=== PATIENT | female | born 1960 | race Caucasian/White ===

== ENCOUNTER 2024-03-01 19:11 | Inpatient (IN) | payer BC, SELFPAY ==
[2024-03-01] VITALS (12 sets, daily range): BP systolic 129–163; BP diastolic 52–99; BMI 17.2; BMI 19.5
[2024-03-01 15:15] LABS: Glucose - Point of Care 190 mg/dl (70-99)
[2024-03-01 16:17] LABS: % Basophils 0.2 % (0-2); % Eosinophils 0.1 % (0-6); % Immature Granulocytes 0.7 % (0-0.5); % Lymphocytes 11.8 % (20.5-51.1); % Monocytes 8.5 % (1.7-9.3); % Neutrophils 78.7 % (42.2-75.2); Absolute Immature Granulocytes 0.1 10^3/uL (0-0.05); Absolute Lymphocytes 1.9 10^3/uL (1.2-3.4); Absolute Monocytes 1.4 10^3/uL (0.1-0.6); Absolute Neutrophils 12.7 10^3/uL (1.4-6.5); Hematocrit 40.1 % (37.0-47.0); Mean Corp Hgb Conc. 34.9 g/dL (33.0-37.0); Mean Corpuscular Hgb 29.3 pg (27.0-31.0); Mean Corpuscular Volume 83.9 fL (81.0-99.0); Mean Platelet Volume 9.4 fL (7.4-10.4); Nucleated Red Blood Cells % 0 %; Platelet Count 384 10^3/uL (130-400); Red Blood Cell Count 4.78 10^6/uL (4.20-5.40); Red Cell Dist. Width 13.5 % (11.5-14.5); White Blood Cell Count 16.2 10^3/uL (4.8-10.8)
--- NOTE | 2024-03-01 16:34 | ED.GENMED ---
History of Present Illness
General
Chief Complaint: Blood Sugar Problem
Source: patient and spouse
Time Seen by Provider: 03/01/24 16:23
Travel History
Have you had any contact with someone who has COVID-19?: No
Do you have any symptoms of coronavirus? Fever > 100 degrees, chills, cough, shortness of breath, sore throat, loss of taste or smell, muscle aches, or headache?: No
History of Present Illness
History of Present Illness:
63-year-old female presents to the emergency room stating she believes she is in DKA. Patient was diagnosed with diabetes as a teenager. She currently uses an insulin pump to control her glucose. Patient states that she began feeling unwell about
36 hours ago. In particular she complains of significant fatigue, nausea, vomiting and mild cough. She subjectively feels like she has a fever but has not measured her temperature. Patient states she has had DKA many times in the past. She
denies chest pain but is feeling short of breath.
Past History
Past History
ED Past Medical History: HTN, Hypercholesterolemia and IDDM
ED Past Surgical History:
Social History
Tobacco: Non-smoker
Alcohol: None
Personal:
Living: with family
Phy Exam
Physical Exam
Physical Exam:
General: Awake, Alert, Oriented X3. No acute distress.
Vitals: unremarkable
Head: Atraumatic
Eyes: Pupils equal, EOMI
Throat: Airway intact, no exudates, dry mucosa
Neck: Trachea midline
Lungs: Clear and equal b/l
Heart: Regular rate, no murmurs
Abd: Soft, Nontender, No pulsatile mass
Neuro: Nonfocal
Skin: Warm, dry, no rash
Extremities: pulses equal b/l, no edema
Course
Orders/Labs/Results
Orders:
Orders
03/01/24 Breakfast
Clear Liquid
At Your Request: Full Participation
Does patient need a safe tray?: No
03/01/24 16:09
Complete Blood Count/With Diff Urgent
03/01/24 16:32
0.9% Sodium Chloride 1000 ml [Nss] 1,000 ml IV BOLUS
03/01/24 16:39
B-Hydroxybutyrate Urgent
Comprehensive Metabolic Panel Urgent
Venous Blood Gas Urgent
%Oxygen/Room Air: room air
03/01/24 17:30
IV Insert/Care/Rem.- Treatment PRN
03/01/24 17:37
Ondansetron Injectable [Zofran] 4 mg IV NOW STA
03/01/24 17:38
Electrocardiogram (*1) Urgent
Reason for Study: QTc Monitoring
EKG- Treatment ONCE
03/01/24 17:50
Basic Metabolic Panel Q2H
COVID-19 Antigen Routine
Source: Nasal Swab
03/01/24 17:55
CR Chest - 2 Views Urgent
Comment:
Reason For Exam: Cough, DKA
03/01/24 18:00
KCl 20 Meq/D5.45%Sodchl 1000ML [D5/0.45%NSS with KCL 20 MEQ] 20 meq in 1,000 ml IV 200 mls/hr
03/01/24 18:18
Admit/Transfer Patient As Directed
Co-Sign Provider:
Level of Care: Inpatient admission
Assign to:: ICU
Physician / Group: Yessi
Diagnosis: DKA
Reason for Hospitalization: insulin drip
Expected length of stay greater than two midnights?: Yes
ELOS- Estimated Length of Stay in days: 3
I certify the patient meets the requirements for IP care: Yes
03/01/24 18:23
Code Status As Directed
Resuscitation Status: Full Code
03/01/24 18:29
Reg Insulin 100 Units/100 ml [Novolin R Insulin Infusion] 100 units in 100 ml IV NOW
03/01/24 20:01
Basic Metabolic Panel Q2H
Urinalysis Routine
Date Specimen was Collected: 03/01/24
Time Specimen was Collected: 19:54
03/01/24 21:01
Reg Insulin 100 Units/100 ml [Novolin R Insulin Infusion] 100 units in 100 ml IV PER PROTOCOL
Currently infusing. Continue current dose and titrate:: Yes
03/01/24 21:01
Diabetes Management by Nurse Practitioner Routine
Consulting Provider: Gabriella Rodriguez
Was provider already notified?: No
Reason for Consult: Insulin Management
Corporate Services Manager Consult Routine
Consulting Provider: Alverto Samaniego
Was physician already notified: Yes
Activity As Directed
Activity Level: Out of Bed-Early Mobility
Bedside Glucose Monitoring As Directed
Frequency: Q1H
Intake/ Output As Directed
Frequency: Per unit guidelines
Notify MD As Directed
Notify physician if: Nurse to contact provider when glucose reaches 250 to obtain orders for D5 0.45 NaCl
Vital Signs As Directed
Frequency: Per unit guidelines
DX Deep Vein Thrombosis Video Routine
03/01/24 21:30
Basic Metabolic Panel Q2H
03/02/24 06:00
Complete Blood Count/No Diff IN AM
Glycohemoglobin (HgbA1c) IN AM
03/02/24 08:00
Bupropion(24Hr)Extended Releas [WELLBUTRIN XL (24 hour extended release)] 150 mg PO DAILY
Lisinopril [Zestril] 10 mg PO DAILY
03/02/24 18:00
Atorvastatin [Lipitor] 40 mg PO QPM
Enoxaparin Sodium [Lovenox] 40 mg SC QPM
Abnormal Lab Results
03/01/24 03/01/24 03/01/24
15:13 16:09 16:39
WBC 16.2 H 10^3/uL
(4.8-10.8)
Abs Immat Gran (auto) 0.1 H 10^3/uL
(0-0.05)
Absolute Neuts (auto) 12.7 H 10^3/uL
(1.4-6.5)
Absolute Monos (auto) 1.4 H 10^3/uL
(0.1-0.6)
Immature Gran % 0.7 H %
(0-0.5)
Neutrophils % 78.7 H %
(42.2-75.2)
Lymphocytes % 11.8 L %
(20.5-51.1)
VBG pH 7.29 L
(7.32-7.43)
VBG pCO2 21 L mmHg
(35-48)
VBG pO2 98 H mmHg
(30-50)
VBG HCO3 10.1 L mmol/L
(22-27)
Sodium 130 L mmol/L
(135-145)
Carbon Dioxide 7 L* mmol/L
(22-30)
BUN 22 H mg/dl
(7-17)
Glucose 158 H mg/dl
(70-99)
Calcium 11.9 H mg/dl
(8.4-10.2)
Alkaline Phosphatase 177 H U/L
(38-126)
B-Hydroxybutyrate 8.13 H mmol/L
(0.02-0.27)
POC Glucose 190 H mg/dl
(70-99)
03/01/24
17:50
WBC
Abs Immat Gran (auto)
Absolute Neuts (auto)
Absolute Monos (auto)
Immature Gran %
Neutrophils %
Lymphocytes %
VBG pH
VBG pCO2
VBG pO2
VBG HCO3
Sodium 128 L mmol/L
(135-145)
Carbon Dioxide < 5 L* mmol/L
(22-30)
BUN 21 H mg/dl
(7-17)
Glucose 247 H mg/dl
(70-99)
Calcium 11.5 H mg/dl
(8.4-10.2)
Alkaline Phosphatase
B-Hydroxybutyrate
POC Glucose
03/01/24 16:09
03/01/24 17:50
Vital Signs
Initial and Last Documented VS:
Initial Vital Signs
Temp Pulse Resp BP Pulse Ox
98.1 F 82 16 129/73 92
03/01/24 15:13 03/01/24 15:13 03/01/24 15:13 03/01/24 15:13 03/01/24 15:13
Last Documented Vital Signs
Temp Pulse Resp BP Pulse Ox
98.0 F 104 21 163/67 98
03/01/24 21:20 03/01/24 21:30 03/01/24 21:30 03/01/24 21:20 03/01/24 21:25
MDM/Problems Addressed
Differential Diagnosis Includes:
Hyperglycemia, DKA, viral illness
MDM/Problems Addressed:
The patient's glucose was minimally elevated in triage she had just given herself a bolus of regular insulin. Her labs are consistent with early DKA. Her anion gap is 23. pH on her venous blood gas is mildly low at 7.29. Glucose was 158 on her
initial BMP. Therefore IV dextrose was started along with insulin at 0.5 units/kg/h. We will have the patient turn off her insulin pump. Patient will be admitted to the intensive care unit for careful monitoring of the insulin infusion and her
overall response to treatment.
Acute Exacerbation and/or Progression of Chronic Illness: DM
*Radiology
Radiology exam reviewed: radiology read reviewed
*Pulse Oximetry
Patient hypoxic: no
*EKG
Interpreted by ED Provider?: Yes
Comparison EKG: no comparison EKG present
Heart Rate: 89
Rate: normal
Rhythm: sinus
[place]: normal axis
Interval: normal interval
QRS Pattern: normal QRS
Ischemia: non-specific ST changes
*Food And Beverage Controller Interpretation
Rate: normal
Interpretation: normal
Rhythm: sinus
*Critical Care Note
Total Time (30-74mins, 75-104mins- exclusive of procedures): 35 min
comment:
Critical care statement: A total of 35 minutes of critical care time was provided for this patient. This includes management of unstable vital signs, evaluation of the patient at bedside, reviewing the patient's pertinent medical records, discussion
with consultants, review of old EKGs and review of pertinent medical records. This time with separate from time utilized to perform the aforementioned documented procedures
Patient Management
Social determinants of health affecting care: Strong social support
Discussion with other providers: Hospitalist
ED Attending Note
-
Portions of this chart may have been created with voice recognition software.� Occasional wrong word or��sound alike� substitutions may have occurred due to the inherent limitations of voice recognition software.
Discharge Plan
Departure
Patient Disposition: Admit
Date of Disposition: 03/01/24
Time of Disposition: 17:39
Admit to: ICU
Presentation/result/management discussed w/ accepting MD/DO: Hospitalist
Condition: Serious
Discharge Problem:
DKA (diabetic ketoacidoses), Diabetes mellitus type 1
Interventions
Interventions:
*Risk Screen - Suicide Last Done: 03/01/24 15:13
*General Assessment Last Done: 03/01/24 15:13
*Neglect/Abuse Screening Last Done: 03/01/24 15:13
ED- Fall Risk Assessment Last Done: 03/01/24 19:30
*ED COVID-19 Vaccine History Last Done: 03/01/24 16:01
*Nursing Disposition Last Done: 03/01/24 21:25
ED- Neurological Assessment Last Done: 03/01/24 16:02
Discharge Date and Time
Discharge Date/Time: 03/01/24 21:20
[2024-03-01] MEDS: NSS 1000 IV (16:40)
[2024-03-01 16:44] LABS: Venous Blood Gas B.E. -14.3 mmol/L (-4 to +4); Venous Blood Gas HCO3 10.1 mmol/L (22-27); Venous Blood Gas O2 Sat % 98.8 %; Venous Blood Gas pCO2 21 mmHg (35-48); Venous Blood Gas pH 7.29 (7.32-7.43); Venous Blood Gas pO2 98 mmHg (30-50)
[2024-03-01 17:07] LABS: ALT (SGPT) 16 U/L (0-35); AST (SGOT) 23 U/L (14-36); Albumin 4.9 g/dl (3.5-5.0); Alkaline Phosphatase 177 U/L (38-126); Blood Urea Nitrogen 22 mg/dl (7-17); Calcium 11.9 mg/dl (8.4-10.2); Carbon Dioxide 7 mmol/L (22-30); Chloride 100 mmol/L (98-107); Estimated Creatinine Clearance 47 ml/min; Glucose 158 mg/dl (70-99); Potassium 4.3 mmol/L (3.5-5.1); Sodium 130 mmol/L (135-145); Total Bilirubin 0.8 mg/dl (0.2-1.3); Total Protein 7.7 g/dl (6.3-8.2); eGFR > 60.00
[2024-03-01] MEDS: ZOFRAN 4 MG IV (17:52)
[2024-03-01 18:03] LABS: B-Hydroxybutyrate 8.13 mmol/L (0.02-0.27)
[2024-03-01 18:26] LABS: COVID-19 Antigen Negative (Negative)
[2024-03-01 18:28] LABS: Blood Urea Nitrogen 21 mg/dl (7-17); Calcium 11.5 mg/dl (8.4-10.2); Carbon Dioxide < 5 mmol/L (22-30); Chloride 101 mmol/L (98-107); Estimated Creatinine Clearance 52 ml/min; Glucose 247 mg/dl (70-99); Sodium 128 mmol/L (135-145); eGFR > 60.00
--- NOTE | 2024-03-01 18:29 | W.PN.UPDATE ---
Update Note
Progress Note Update
Patient seen and examined and discussed with CHUCK Dent, and I agree with her note. Please refer to her H&P.
Gen-AAOx3, mild distress due to nausea
HEENT-NC, AT, anicteric, clear oral mm
Neck-supple
CV-reg, no M, +S1/S2
Lungs-clear B/L
Abd-soft, NT, ND
Ext-no edema
Musculoskeletal-no cyanosis, clubbing
Skin-warm and dry
Neuro-grossly non-focal
Psych-calm, cooperative
DM1 complicated by DKA -unknown trigger but perhaps acute gastroenteritis given symptoms. Patient unclear of what may have triggered her symptoms but she did run out of supplies for her continuous glucose monitor about a month ago. States she has
been compliant with her insulin pump.
Onset of symptoms of nausea vomiting and fatigue about 1 to 2 days ago. Abdominal discomfort. Very poor historian overall. Has had numerous episodes of hospitalization for DKA in the past.
Admit to ICU, consult retoucher, continue IV fluids, transition to IV regular insulin and hold insulin pump. Diabetes education consult on Monday.
She follows up with endocrinology in [place].
Further workup pending including chest x-ray and urinalysis. Elevated beta hydroxybutyrate noted.
Significant metabolic acidosis -due to DKA and GI losses. Elevated anion gap and normal anion gap acidosis noted. Should correct with IV fluid administration. Hemodynamically stable.
Hyponatremia -likely due to hypovolemia due to DKA. Contributing from hyperglycemia as well.
Hypercalcemia - suspect due to volume depletion. If calcium does not correct with IV fluid administration will check PTH level.
Essential hypertension -stable.
Hyperlipidemia -on atorvastatin.
Major depression
Diabetic gastroparesis
Full code
--- NOTE | 2024-03-01 18:29 | HPS.HSE ---
Family Physician
-
Family Physician: Oscar Miles
Chief Complaint
-
Elevated Blood Sugars
History of Present Illness
Patient is a 63 y/o female with a past medical history of diabetes mellitus type 1, diabetic ketoacidosis, hyperlipidemia, hypertension, depression, and attention deficit hyperactivity disorder who presents for hyperglycemia, nausea, and vomiting
since Monday. During the history, patient responds with one-word answers. She reports sugars in the 600s since Monday with nausea, vomiting, and diffuse abdominal discomfort. She admits to titrating her insulin to lower her blood sugars. She
notes that she ran out of supply for her continuous glucose monitor about a month ago. She denies any triggering events, fever, chest pain, cough, urinary changes, and diarrhea.
Medical History
Past Medical History
Past Medical History: Reports Other
Additional Past Medical History:
Diabetes Mellitus, Type I
Gastroparesis
Essential Hypertension
Hyperlipidemia
Depression
Past Surgical History: Reports Other
Additional Past Surgical History:
Social History
Tobacco: Non-smoker
Alcohol: None
Family History
Family History: Not pertinent
Allergies / Home Medications
Allergies reflects when Allergies were last updated in [facility].
Home Medications with original date entered in [facility]
Allergy/Medication List:
Allergies
Allergy/AdvReac Type Severity Reaction Status Date / Time
No Known Allergies Allergy Verified 03/01/24 15:13
Home Medications
lisinopril 10 mg tablet 10 mg PO DAILY 05/15/15
atorvastatin 40 mg tablet 40 mg PO QPM 03/01/24
bupropion HCl 150 mg 24 hr tablet, extended release 150 mg PO DAILY 03/01/24
dextroamphetamine-amphetamine 10 mg tablet 10 mg PO DAILY PRN focus 03/01/24
dextroamphetamine-amphetamine ER 30 mg 24hr capsule,extend release 30 mg PO DAILY 03/01/24
insulin aspart U-100 100 unit/mL subcutaneous solution (Novolog U-100 Insulin aspart) 0 unit SC .VIA PUMP 03/01/24
Review of Systems
-
A 12 point ROS was completed and negative except as noted: Yes
Constitutional: Denies Fever or Chills
Respiratory: Denies Cough or Trouble Breathing
Cardiac: Denies Chest Pain or Palpitations
Abdomen/GI: Reports Nausea and Vomiting; Denies Abdominal Pain or Diarrhea
: Denies Dysuria or Frequency
Physical Exam
Vital Signs
Vital Signs
Temp Pulse Resp BP Pulse Ox
98.1 F 83 16 145/61 100
03/01/24 15:13 03/01/24 17:01 03/01/24 17:01 03/01/24 17:01 03/01/24 17:01
Physical Exam
General: Well Developed, Well Nourished and Other (Mild distress)
HEENT: NormoCephalic, Atraumatic and Other (Dry mucous membranes)
Respiratory: Clear and Non Labored Respirations
Cardiac: S1/S2 and Regular Rhythm
GI: Soft and Non Tender
Rectal: Deferred by Provider
Musculoskeletal: No Clubbing, No Cyanosis and No Edema
Skin: Warm and Dry
Neuro: Awake, Alert, Oriented and Nonfocal/grossly intact
Psych: Calm
Laboratory Results
-
03/01/24 16:09
Laboratory Results
Total Bilirubin 0.8 mg/dl (0.2-1.3) 03/01/24 16:39
AST 23 U/L (14-36) 03/01/24 16:39
ALT 16 U/L (0-35) 03/01/24 16:39
Alkaline Phosphatase 177 U/L (38-126) H 03/01/24 16:39
Data Reviewed
-
Lab Data: Labs Reviewed by me
Impression/Plan
-
Diabetic Ketoacidosis
-Admit to ICU
-Continue insulin drip
-Continue IVFs
-Monitor bedside glucose q1H and BMP q2H
Leukocytosis, possibly reactive
-Check CXR, COVID and urinalysis as potential sources of infection and trigger for DKA
Hyponatremia, secondary to volume depletion due to DKA
-Continue IVFs
Hypercalcemia, likely secondary to volume depletion
-Continue IVFs
-If remains elevated check PTH
Essential Hypertension
-Continue lisinopril with hold parameters
Dyslipidemia
-Continue atorvastatin
Depression
-Continue Wellbutrin
DVT proph: Lovenox
Code Status: Full Code
[2024-03-01] MEDS: D5/0.45%NSS with KCL 20 MEQ 1000 IV (18:43)
[2024-03-01] MEDS: NOVOLIN R INSULIN INFUSION 100 IV (18:44)
[2024-03-01] MEDS: MAALOX 30 ML PO (19:52)
[2024-03-01 20:14] LABS: Urine Albumin Trace (Neg - Trace); Urine Bilirubin Negative (Negative); Urine Character Clear (Clear); Urine Color Yellow; Urine Glucose 3+ (Negative); Urine Ketone 3+ (Negative); Urine Leukocyte Negative (Negative); Urine Nitrite Negative (Negative); Urine Occult Blood Negative (Negative); Urine Urobilinogen Negative (Neg - 1+)
[2024-03-01] MEDS: NSS (PRESERVATIVE FREE) 10 ML IV (20:16)
[2024-03-01] MEDS: PROTONIX IV 40 MG IV (20:28)
[2024-03-01 20:31] LABS: Blood Urea Nitrogen 20 mg/dl (7-17); Calcium 10.8 mg/dl (8.4-10.2); Carbon Dioxide < 5 mmol/L (22-30); Chloride 100 mmol/L (98-107); Estimated Creatinine Clearance 52 ml/min; Glucose 409 mg/dl (70-99); Sodium 128 mmol/L (135-145); eGFR > 60.00
[2024-03-01 21:20] LABS: Glucose - Point of Care 416 mg/dl (70-99)
--- NOTE | 2024-03-01 21:30 | PTCARENOTE ---
Received pt. from ED approximately 2100. Pt. awake, alert, and oriented. Denies pain/discomfort. Heart rhythm sinus tachy. Currently on room air. Lungs sound clear. Pt. having GI reflux in ED. Per ED nurse Maalox and Protonix given in ED. Pt.
voiding in bedpan without issue. Skin as documented. Discussed plan of care. Vital signs stable at this time.
[2024-03-01] MEDS: NSS with KCL 20 MEQ 1000 IV (22:04)
[2024-03-01 22:13] LABS: Glucose - Point of Care 417 mg/dl (70-99)
[2024-03-01 23:13] LABS: Glucose - Point of Care 355 mg/dl (70-99)
[2024-03-01 23:38] LABS: Blood Urea Nitrogen 18 mg/dl (7-17); Calcium 10.9 mg/dl (8.4-10.2); Carbon Dioxide < 5 mmol/L (22-30); Chloride 99 mmol/L (98-107); Estimated Creatinine Clearance 58 ml/min; Glucose 434 mg/dl (70-99); Potassium 5.1 mmol/L (3.5-5.1); Sodium 128 mmol/L (135-145); eGFR > 60.00
[2024-03-02] VITALS (23 sets, daily range): BP systolic 112–153; BP diastolic 45–85
[2024-03-02 00:17] LABS: Glucose - Point of Care 262 mg/dl (70-99)
--- NOTE | 2024-03-02 00:30 | PTCARENOTE ---
Pt. assessment unchanged. Remains on insulin gtt per DKA protocol. Trending labs. Vital signs stable at this time.
[2024-03-02 01:16] LABS: Glucose - Point of Care 196 mg/dl (70-99)
[2024-03-02] MEDS: TYLENOL 650 MG PO ×2 (01:38→07:41)
[2024-03-02 01:44] LABS: Blood Urea Nitrogen 18 mg/dl (7-17); Carbon Dioxide 9 mmol/L (22-30); Chloride 111 mmol/L (98-107); Estimated Creatinine Clearance 66 ml/min; Glucose 185 mg/dl (70-99); Potassium 4.6 mmol/L (3.5-5.1); Sodium 132 mmol/L (135-145); eGFR > 60.00
[2024-03-02] MEDS: NSS with KCL 20 MEQ IV (01:51)
[2024-03-02] MEDS: D5/0.45%NSS with KCL 20 MEQ 1000 IV (01:54)
[2024-03-02 02:14] LABS: Glucose - Point of Care 142 mg/dl (70-99)
[2024-03-02 03:11] LABS: Glucose - Point of Care 206 mg/dl (70-99)
[2024-03-02 04:13] LABS: Glucose - Point of Care 165 mg/dl (70-99)
--- NOTE | 2024-03-02 04:15 | PTCARENOTE ---
Pt. assessment remains unchanged. Continuing insulin gtt per DKA protocol. Trending labs. AM labs drawn. Vital signs stable at this time.
[2024-03-02 04:17] LABS: Hematocrit 34.1 % (37.0-47.0); Hemoglobin 11.6 g/dL (12.0-16.0); Mean Corpuscular Hgb 29.1 pg (27.0-31.0); Mean Corpuscular Volume 85.7 fL (81.0-99.0); Mean Platelet Volume 9.4 fL (7.4-10.4); Platelet Count 321 10^3/uL (130-400); Red Blood Cell Count 3.98 10^6/uL (4.20-5.40); Red Cell Dist. Width 13.6 % (11.5-14.5); White Blood Cell Count 17.3 10^3/uL (4.8-10.8)
[2024-03-02 04:29] LABS: APTT 28.8 Sec (23.4-35.0); INR 1.12; PT 14.3 Sec (11.4-14.6)
[2024-03-02 05:01] LABS: Blood Urea Nitrogen 17 mg/dl (7-17); Calcium 10.1 mg/dl (8.4-10.2); Carbon Dioxide 8 mmol/L (22-30); Chloride 110 mmol/L (98-107); Estimated Creatinine Clearance 66 ml/min; Glucose 165 mg/dl (70-99); Potassium 4.6 mmol/L (3.5-5.1); Sodium 132 mmol/L (135-145); eGFR > 60.00
[2024-03-02 05:15] LABS: Glucose - Point of Care 168 mg/dl (70-99)
[2024-03-02 06:13] LABS: Glucose - Point of Care 135 mg/dl (70-99)
[2024-03-02 07:13] LABS: Glucose - Point of Care 147 mg/dl (70-99)
--- NOTE | 2024-03-02 07:28 | W.PN.HOSP.TC ---
Today's Communication/Plan
-
Await BMP
Assessment / Plan
Assessment / Plan
Gen-AAOx3, NAD
HEENT-NC, AT, anicteric, clear oral mm
Neck-supple
CV-reg, no M, +S1/S2
Lungs-clear B/L
Abd-soft, NT, ND
Ext-no edema
Musculoskeletal-no cyanosis, clubbing
Skin-warm and dry
Neuro-grossly non-focal
Psych-calm, cooperative
DM1 complicated by DKA -unknown trigger but perhaps acute gastroenteritis given symptoms. Improving DKA. Anion gap 14. Currently on insulin drip at 1 unit/h. Last Accu-Chek 147. Repeat BMP pending.
She uses a insulin pump at home, currently shut off. Uses a Dexcom but ran out of supplies a month ago.
Currently on clears, will continue.
Significant metabolic acidosis -due to DKA and GI losses. Elevated anion gap and normal anion gap acidosis noted. Should correct with IV fluid administration. Hemodynamically stable. Bicarbonate 8 this morning, repeat pending. May need bicarb
drip if still low.
Hyponatremia -likely due to hypovolemia due to DKA. Contributing from hyperglycemia as well.
Hypercalcemia -resolved.
Essential hypertension -stable.
Hyperlipidemia -on atorvastatin.
Major depression
Diabetic gastroparesis
Full code
Anticipated Discharge: 24 - 48 hours
Subjective/Interval History
-
Date of Service: March 02, 2024
Patient seen and examined. Feeling much better. Very mild nausea, Headache.
Objective Data
-
Labs:
Laboratory Results
03/01/24 03/01/24 03/02/24
20:01 22:13 01:13
WBC
Hgb
Hct
Plt Count
PT
INR
APTT
Sodium 128 L 128 L 132 L
Potassium 5.0 5.1 4.6
Chloride 100 99 111 H
Carbon Dioxide < 5 L* < 5 L* 9 L*
BUN 20 H 18 H 18 H
Creatinine 0.9 0.9 0.8
Glucose 409 H 434 H 185 H
Calcium 10.8 H 10.9 H 10.0
03/02/24 03/02/24 03/02/24
04:11 08:00 12:00
WBC 17.3 H
Hgb 11.6 L
Hct 34.1 L
Plt Count 321
PT 14.3
INR 1.12
APTT 28.8
Sodium 132 L Pending Pending
Potassium 4.6 Pending Pending
Chloride 110 H Pending Pending
Carbon Dioxide 8 L* Pending Pending
BUN 17 Pending Pending
Creatinine 0.8 Pending Pending
Glucose 165 H Pending Pending
Calcium 10.1 Pending Pending
03/02/24 03/02/24
16:00 20:00
WBC
Hgb
Hct
Plt Count
PT
INR
APTT
Sodium Pending Pending
Potassium Pending Pending
Chloride Pending Pending
Carbon Dioxide Pending Pending
BUN Pending Pending
Creatinine Pending Pending
Glucose Pending Pending
Calcium Pending Pending
Vital Signs:
Vital Signs
Temp Pulse Resp BP Pulse Ox
98.7 F 85 14 131/58 97
03/02/24 00:04 03/02/24 06:00 03/02/24 06:00 03/02/24 06:00 03/02/24 06:00
I&O
03/01/24 03/02/24 03/03/24
06:59 06:59 06:59
Intake Total 3229.5 / 3229.5
Output Total 1450 / 1450
Balance 177.5 / 1778.5
Review of Systems
-
History Source: Patient
All other systems: Reviewed and negative
[2024-03-02] MEDS: PROTONIX 40 MG PO (07:40)
[2024-03-02] MEDS: ZESTRIL PO (07:40)
[2024-03-02] MEDS: WELLBUTRIN XL (24 hour extended release) 150 MG PO (07:40)
--- NOTE | 2024-03-02 07:44 | CON.INTV ---
Consultation
Consultation Request
Date/Time Consultation Requested: 03-02-24
Date/Time Consultation Performed: 03-02-24
Requesting Provider: Hospitalist roselyn
Performing Provider: Dr Samaniego
Reason for Consultation: DKA
Medical History
-
Chief Complaint: n/v
History of Present Illness:
Mrs Debo Méndez is a 63/W adm [birth year]-01 with 3 d h/o gral malaise, n/v.
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 Denies fever, cough, CP, diarrhea, dysuria.
At ER, mild systolic hypertension, no fever or hypoxemia, found in DKA, started on IVFs and insulin protocol
Past Medical History
Past Medical History: Other (see A&P for PMH/PSH)
Social History
Tobacco: Non-smoker
Alcohol: None
Drug: None
Personal:
Living: With Family
Family History
Family History: Reviewed & Not Pertinent
Allergies / Home Medications
Allergies
Allergy/AdvReac Type Severity Reaction Status Date / Time
No Known Allergies Allergy Verified 03/01/24 15:13
Home Medications
�Medication �Instructions �Recorded �Confirmed �Last Taken �Type
lisinopril 10 mg tablet 10 mg PO DAILY 05/15/15 03/01/24 3 Days Ago History
~02/27/24
atorvastatin 40 mg tablet 40 mg PO QPM 03/01/24 03/01/24 3 Days Ago History
~02/27/24
bupropion HCl 150 mg 24 hr tablet, 150 mg PO DAILY 03/01/24 03/01/24 3 Days Ago History
extended release ~02/27/24
dextroamphetamine-amphetamine 10 10 mg PO DAILY PRN focus 03/01/24 03/01/24 Unknown History
mg tablet
dextroamphetamine-amphetamine ER 30 mg PO DAILY 03/01/24 03/01/24 3 Days Ago History
30 mg 24hr capsule,extend release ~02/27/24
insulin aspart U-100 100 unit/mL 0 unit SC .VIA PUMP 03/01/24 03/01/24 Unknown History
subcutaneous solution (Novolog
U-100 Insulin aspart)
Review of Systems
-
History Source: Patient
All other systems: Negative unless noted
Abdomen/GI: Abdominal Pain (discomfort), Nausea and Vomiting
Neuro: Weakness
Vitals / Labs / Diagnostic Testing
Vital Signs
Temp Pulse Resp BP Pulse Ox
98.6 F 85 14 131/58 97
03/02/24 07:38 03/02/24 06:00 03/02/24 06:00 03/02/24 06:00 03/02/24 06:00
Lab Data
03/02/24 04:11
Laboratory Results
03/02/24
04:11
PT 14.3
INR 1.12
APTT 28.8
Diagnostic Testing:
Physical Exam
-
HEENT: Normocephalic and Moist Mucous Membranes (n)
Cardiovascular: Regular Rhythm, Murmur, Peripheral Edema (n) and Calf Tenderness (n)
Respiratory: Clear and Other (breast implants)
GI: Soft, Non Distended and Non Tender
Neurology: Awake, AO x 3 and No Motor Deficits
Skin: Warm
General: Respiratory Distress (n)
Assessment
-
Assessment:
Mrs Debo Méndez is a 63/W adm [birth year]-01 with 3 d h/o gral malaise, n/v. 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 Denies fever, cough, CP, diarrhea, dysuria. At ER, mild systolic hypertension, no fever or
hypoxemia, found in DKA, started on IVFs and insulin protocol
Impression:
DKA
Hyponatremia
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
Type 1 diabetes mellitus, chronic insulin pump
HTN
HLD
Gastroparesis
ADHD
Depression
Bilateral breast implants
Plan:
Patient admitted to medical intensive care unit for close monitoring
Supplemental oxygen as needed
Monitor blood sugar
Monitor anion gap
Insulin drip
Check A1c pending
Intravenous fluid resuscitation
Monitor potassium closely and replace appropriately
Bicarbonate gtt, follow serum level
CXR with no infiltrates (bilateral breast implants)
UA with no suspicious for UTI
Remains afebrile and hemodyn stable
GI prophylazxis
DVT prophylaxis
Early nutrition
Early mobilization
Critical care time: 35 min
[2024-03-02 08:10] LABS: Glucose - Point of Care 178 mg/dl (70-99)
[2024-03-02 08:22] LABS: Blood Urea Nitrogen 17 mg/dl (7-17); Calcium 10.2 mg/dl (8.4-10.2); Carbon Dioxide 12 mmol/L (22-30); Chloride 109 mmol/L (98-107); Estimated Creatinine Clearance 66 ml/min; Glucose 175 mg/dl (70-99); Magnesium 1.9 mg/dl (1.6-2.3); Phosphorus 2.3 mg/dl (2.5-4.5); Potassium 4.6 mmol/L (3.5-5.1); Sodium 132 mmol/L (135-145); eGFR > 60.00
--- NOTE | 2024-03-02 08:34 | PTCARENOTE ---
Rec'd pt at 0700. Pt AAOx3, c/o headache, PRN Tylenol given. Monitor SR. Lungs CTA, pox 99% RA. +BS abd soft/nt. Denies any abdominal discomfort. Q1hr accuchecks with Insulin gtts infusing at 2unit/hr per protocol.
[2024-03-02 09:12] LABS: Glucose - Point of Care 168 mg/dl (70-99)
[2024-03-02] MEDS: SODIUM BICARBONATE 1150 MEQ IV ×2 (09:18→20:07)
[2024-03-02] MEDS: SODIUM PHOSPHATE 255 MEQ IV (09:19)
[2024-03-02 10:12] LABS: Glucose - Point of Care 158 mg/dl (70-99)
[2024-03-02 10:34] LABS: Glycohemoglobin (HgbA1c) 11.3 % (4.0-5.6)
[2024-03-02 11:25] LABS: Glucose - Point of Care 168 mg/dl (70-99)
[2024-03-02 12:10] LABS: Glucose - Point of Care 177 mg/dl (70-99)
[2024-03-02 12:52] LABS: Blood Urea Nitrogen 15 mg/dl (7-17); Calcium 9.5 mg/dl (8.4-10.2); Carbon Dioxide 19 mmol/L (22-30); Chloride 107 mmol/L (98-107); Estimated Creatinine Clearance 75 ml/min; Glucose 184 mg/dl (70-99); Potassium 3.9 mmol/L (3.5-5.1); Sodium 130 mmol/L (135-145); eGFR > 60.00
[2024-03-02 13:11] LABS: Glucose - Point of Care 161 mg/dl (70-99)
--- NOTE | 2024-03-02 13:15 | PTCARENOTE ---
Trumanarb added to IVF this am, 1200 labs improved. No changes in assessment.
[2024-03-02] MEDS: TYLENOL 1000 MG PO ×2 (13:52→20:05)
[2024-03-02 14:06] LABS: Glucose - Point of Care 193 mg/dl (70-99)
[2024-03-02 15:18] LABS: Glucose - Point of Care 174 mg/dl (70-99)
--- NOTE | 2024-03-02 15:46 | PTCARENOTE ---
Pt with headache on and off throughout shift, PRN Tylenol given with relief. Pt sleeping when undisturbed. Insulin gtts infusing at 2units/hr per protocol.
[2024-03-02 16:18] LABS: Glucose - Point of Care 164 mg/dl (70-99)
[2024-03-02 17:01] LABS: Blood Urea Nitrogen 13 mg/dl (7-17); Calcium 9.7 mg/dl (8.4-10.2); Carbon Dioxide 19 mmol/L (22-30); Chloride 106 mmol/L (98-107); Estimated Creatinine Clearance 88 ml/min; Glucose 162 mg/dl (70-99); Potassium 3.5 mmol/L (3.5-5.1); Sodium 129 mmol/L (135-145); eGFR > 60.00
[2024-03-02 17:19] LABS: Glucose - Point of Care 136 mg/dl (70-99)
[2024-03-02] MEDS: LOVENOX 40 MG SC (18:03)
[2024-03-02] MEDS: LIPITOR 40 MG PO (18:03)
[2024-03-02 18:15] LABS: Glucose - Point of Care 215 mg/dl (70-99)
[2024-03-02 19:21] LABS: Glucose - Point of Care 181 mg/dl (70-99)
--- NOTE | 2024-03-02 19:30 | PTCARENOTE ---
Received pt. at 1900. Pt. awake, alert, and oriented. No complaints of pain or discomfort. Afebrile. Heart rhythm sinus. BP normotensive. Currently on room air. Lungs sound clear. Clear liquid diet, pt. has good appetite. Remains on insulin gtt,
following DKA protocol. Voiding in bed elizalde without issue. Skin as documented. Vital signs stable at this time.
[2024-03-02 20:19] LABS: Glucose - Point of Care 148 mg/dl (70-99)
[2024-03-02 20:44] LABS: Blood Urea Nitrogen 11 mg/dl (7-17); Calcium 9.6 mg/dl (8.4-10.2); Carbon Dioxide 22 mmol/L (22-30); Chloride 105 mmol/L (98-107); Estimated Creatinine Clearance 88 ml/min; Glucose 149 mg/dl (70-99); Potassium 3.2 mmol/L (3.5-5.1); Sodium 131 mmol/L (135-145); eGFR > 60.00
[2024-03-02 21:15] LABS: Glucose - Point of Care 147 mg/dl (70-99)
[2024-03-02 22:14] LABS: Glucose - Point of Care 157 mg/dl (70-99)
[2024-03-02] MEDS: KCL 40 MEQ PO (23:07)
[2024-03-02 23:16] LABS: Glucose - Point of Care 123 mg/dl (70-99)
[2024-03-03] VITALS (14 sets, daily range): BP systolic 96–161; BP diastolic 54–79; BMI 20.1
--- NOTE | 2024-03-03 00:05 | PTCARENOTE ---
Pt. assessment unchanged. Continuing insulin gtt per DKA protocol. Trending labs. Pt. c/o head ache. PRN Tylenol given. Vital signs stable at this time.
[2024-03-03 00:09] LABS: Glucose - Point of Care 121 mg/dl (70-99)
[2024-03-03 00:31] LABS: Blood Urea Nitrogen 10 mg/dl (7-17); Calcium 9.4 mg/dl (8.4-10.2); Carbon Dioxide 24 mmol/L (22-30); Chloride 104 mmol/L (98-107); Estimated Creatinine Clearance 88 ml/min; Glucose 123 mg/dl (70-99); Potassium 3.1 mmol/L (3.5-5.1); Sodium 131 mmol/L (135-145); eGFR > 60.00
[2024-03-03] MEDS: TYLENOL 1000 MG PO (01:07)
[2024-03-03 01:16] LABS: Glucose - Point of Care 100 mg/dl (70-99)
[2024-03-03 02:15] LABS: Glucose - Point of Care 149 mg/dl (70-99)
--- NOTE | 2024-03-03 04:15 | PTCARENOTE ---
Pt. assessment remains unchanged. AM labs drawn. Vital signs stable at this time.
[2024-03-03 04:39] LABS: Hematocrit 30.3 % (37.0-47.0); Hemoglobin 10.5 g/dL (12.0-16.0); Mean Corp Hgb Conc. 34.7 g/dL (33.0-37.0); Mean Corpuscular Hgb 29.4 pg (27.0-31.0); Mean Corpuscular Volume 84.9 fL (81.0-99.0); Mean Platelet Volume 9.8 fL (7.4-10.4); Platelet Count 232 10^3/uL (130-400); Red Blood Cell Count 3.57 10^6/uL (4.20-5.40); White Blood Cell Count 9.6 10^3/uL (4.8-10.8)
[2024-03-03 04:39] LABS: Glucose - Point of Care 155 mg/dl (70-99)
[2024-03-03 04:39] LABS: Glucose - Point of Care 136 mg/dl (70-99)
[2024-03-03 05:03] LABS: Blood Urea Nitrogen 9 mg/dl (7-17); Calcium 9.1 mg/dl (8.4-10.2); Carbon Dioxide 26 mmol/L (22-30); Chloride 102 mmol/L (98-107); Estimated Creatinine Clearance 88 ml/min; Glucose 142 mg/dl (70-99); Magnesium 1.8 mg/dl (1.6-2.3); Phosphorus 2.2 mg/dl (2.5-4.5); Potassium 3.4 mmol/L (3.5-5.1); Sodium 133 mmol/L (135-145); eGFR > 60.00
[2024-03-03 05:14] LABS: Glucose - Point of Care 140 mg/dl (70-99)
[2024-03-03] MEDS: KCL 40 MEQ PO (06:04)
[2024-03-03 06:16] LABS: Glucose - Point of Care 146 mg/dl (70-99)
[2024-03-03] MEDS: ZESTRIL 10 MG PO (07:02)
[2024-03-03] MEDS: PROTONIX 40 MG PO (07:03)
[2024-03-03] MEDS: WELLBUTRIN XL (24 hour extended release) 150 MG PO (07:03)
[2024-03-03 07:09] LABS: Glucose - Point of Care 181 mg/dl (70-99)
[2024-03-03] MEDS: ZOFRAN 4 MG IV (07:22)
--- NOTE | 2024-03-03 07:35 | W.PN.INTV ---
Today's Communication / Plan
Recommendations
Transition to corrective insulin
Oral diet
Reconsult prn
Assessment
-
Assessment:
Mrs Debo Méndez is a 63/W adm 03-01 with 3 d h/o gral malaise, n/v. 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 Denies fever, cough, CP, diarrhea, dysuria. At ER, mild systolic hypertension, no fever or
hypoxemia, found in DKA, started on IVFs and insulin protocol
Impression:
DKA
Hyponatremia, mild, improving
Conditions MARINE PLUMBER:
Type 1 diabetes mellitus, chronic insulin pump
HTN
HLD
Gastroparesis
ADHD
Depression
Bilateral breast implants
Plan:
Patient admitted to medical intensive care unit for close monitoring
Supplemental oxygen as needed
Monitor blood sugar
Anion gap closed consistently a number of times
Insulin drip to be discontinued, transition to corrective insulin and lantus
Pump to be checked tomorrow
Oral diete
A1c 11.3
Intravenous fluid resuscitation
Monitor potassium closely and replace appropriately
Bicarbonate gtt: to discontinue
CXR with no infiltrates (bilateral breast implants)
UA with no suspicious for UTI
Remains afebrile and hemodyn stable
GI prophylaxis
DVT prophylaxis
Early nutrition
Early mobilization
Can transfer out of ICU
Reconsult prn
Subjective Dataa
Subjective Data
Date of Service:
Date of Service: March 03, 2024
Chief Complaint: Networking Administrator Follow Up
Subjective:
No major events reported overnight
Anion gap closed
Feeling better, now hungry
Review of Systems
General: Fever (n), Sweats (n), Chills (n) and Satisfactory Appetite
HEENT: Epistaxis (n) and Dysphagia (n)
Cardiopulmonary: Dyspnea (n), Cough (n), Wheezing (n) and Chest Pain (n)
GI: Abdominal Pain (n), Nausea (n) and Vomiting (n)
Neuro: Weakness
Objective Data
Data Reviewed
Vital Signs / I&O / Oxygen:
Vital Signs
Temp Pulse Resp BP Pulse Ox
98.1 F 63 11 148/79 97
03/03/24 03:18 03/03/24 06:30 03/03/24 06:30 03/03/24 06:00 03/03/24 06:30
Intake and Output
03/02/24 03/03/24 03/04/24
06:59 06:59 06:59
Intake Total 3229.5 / 3330.5 3739.5 / 3739.5
Output Total 1450 / 1450 650 / 650
Balance 1779.5 / 1880.5 3089.5 / 3089.5
SaO2 97
Physical Exam
General: Comfortable
HEENT: Normocephalic and Moist Mucous Membranes
Cardiovascular: Regular Rhythm, Murmur (n), Peripheral Edema (n) and Calf Tenderness (n)
Respiratory: Clear, Non-Labored Respirations and Stridor (n)
GI: Soft, Non Distended and Non Tender
Neurology: Awake, AO x 3 and No Motor Deficits
Skin: Warm
Labs/Micro/Reports
Lab Data
03/03/24 04:12
--- NOTE | 2024-03-03 07:35 | W.PN.HOSP.TC ---
Today's Communication/Plan
-
Transition off insulin drip
Stop bicarb drip
Sodium phosphate
LFTs
Lipase
IV Protonix
Assessment / Plan
Assessment / Plan
Gen-AAOx3, NAD
HEENT-NC, AT, anicteric, clear oral mm
Neck-supple
CV-reg, no M, +S1/S2
Lungs-clear B/L
Abd-soft, nondistended, mild periumbilical tenderness
Ext-no edema
Musculoskeletal-no cyanosis, clubbing
Skin-warm and dry
Neuro-grossly non-focal
Psych-calm, cooperative
DM1 complicated by DKA -unknown trigger but perhaps acute gastroenteritis given symptoms. Anion gap 5, bicarb 26 on bicarb drip. DKA resolved. Glucose 142 this morning, BMP at 8 AM pending.
Will transition off insulin drip, start Lantus 28 units in the morning. Overlap with drip over 2 hours. NovoLog with meals, low resistance correction scale.
Consult diabetes SCOW CAPTAIN to see tomorrow to transition back to pump.
Significant metabolic acidosis -due to DKA and GI losses. Resolved.
Nausea, epigastric discomfort -unclear if side effect of potassium supplements versus gastritis versus peptic ulcer disease. Symptoms seem to have worsened after 40 meq oral potassium early this morning. If epigastric discomfort persists, will
consult GI. Check lipase. Check LFTs.
Hypophosphatemia -will replete.
Hyponatremia -likely due to hypovolemia due to DKA. Contributing from hyperglycemia as well.
Hypokalemia -getting repleted. Magnesium normal.
Hypercalcemia -resolved.
Essential hypertension -stable. Lisinopril resumed.
Hyperlipidemia -on atorvastatin.
Major depression
Diabetic gastroparesis
Full code
Anticipated Discharge: 24 - 48 hours
Subjective/Interval History
-
Date of Service: March 03, 2024
Patient seen and examined. Complaining of nausea, epigastric pain.
Objective Data
-
Labs:
Laboratory Results
03/02/24 03/03/24 03/03/24
20:13 00:03 04:00
WBC
Hgb
Hct
Plt Count
Sodium 131 L 131 L Pending
Potassium 3.2 L 3.1 L Pending
Chloride 105 104 Pending
Carbon Dioxide 22 24 Pending
BUN 11 10 Pending
Creatinine 0.6 0.5 L Pending
Glucose 149 H 123 H Pending
Calcium 9.6 9.4 Pending
Total Bilirubin
AST
ALT
Alkaline Phosphatase
03/03/24 03/03/24 03/03/24
04:12 07:34 08:00
WBC 9.6
Hgb 10.5 L
Hct 30.3 L
Plt Count 232 D
Sodium 133 L Pending
Potassium 3.4 L Pending
Chloride 102 Pending
Carbon Dioxide 26 Pending
BUN 9 Pending
Creatinine 0.5 L Pending
Glucose 142 H Pending
Calcium 9.1 Pending
Total Bilirubin Pending
AST Pending
ALT Pending
Alkaline Phosphatase Pending
03/03/24 03/03/24 03/03/24
12:00 16:00 20:00
WBC
Hgb
Hct
Plt Count
Sodium Pending Pending Pending
Potassium Pending Pending Pending
Chloride Pending Pending Pending
Carbon Dioxide Pending Pending Pending
BUN Pending Pending Pending
Creatinine Pending Pending Pending
Glucose Pending Pending Pending
Calcium Pending Pending Pending
Total Bilirubin
AST
ALT
Alkaline Phosphatase
Vital Signs:
Vital Signs
Temp Pulse Resp BP Pulse Ox
98.1 F 63 11 148/79 97
03/03/24 03:18 03/03/24 06:30 03/03/24 06:30 03/03/24 06:00 03/03/24 06:30
I&O
03/02/24 03/03/24 03/04/24
06:59 06:59 06:59
Intake Total 3229.5 / 3330.5 3739.5 / 3739.5
Output Total 1450 / 1450 650 / 650
Balance 1779.5 / 1880.5 3089.5 / 3089.5
Review of Systems
-
History Source: Patient
All other systems: Reviewed and negative
[2024-03-03 08:15] LABS: Glucose - Point of Care 207 mg/dl (70-99)
[2024-03-03] MEDS: SODIUM PHOSPHATE 255 MEQ IV (08:20)
[2024-03-03] MEDS: LANTUS 0.280000000000000027 UNITS SC (08:20)
[2024-03-03] MEDS: D5/0.9% SODIUM CHLORIDE 1000 IV (08:21)
[2024-03-03 08:36] LABS: ALT (SGPT) 14 U/L (0-35); AST (SGOT) 22 U/L (14-36); Alkaline Phosphatase 103 U/L (38-126); Direct Bilirubin 0.2 mg/dl (0.0-0.4); Lipase 62 U/L (23-300); Total Bilirubin 0.4 mg/dl (0.2-1.3); Total Protein 5.3 g/dl (6.3-8.2)
[2024-03-03 09:09] LABS: Glucose - Point of Care 203 mg/dl (70-99)
[2024-03-03 10:17] LABS: Glucose - Point of Care 142 mg/dl (70-99)
--- NOTE | 2024-03-03 10:35 | PTCARENOTE ---
Rec'd pt at 0700. Pt C/o severe abd pain and nausea after receiving am doses of potassium, notified. IV Zofran ordered and given with relief. Pt AAOx3. ~0820 Lantus given, Insulin gtts dc'd 2 hrs later.
[2024-03-03] MEDS: NOVOLOG FLEXPEN-LOW RESISTANCE SC (11:03)
[2024-03-03 11:13] LABS: Glucose - Point of Care 132 mg/dl (70-99)
--- NOTE | 2024-03-03 11:28 | PTCARENOTE ---
Pt with epigastric pain, 'burning' after eat a few bites of breakfast tray. Dr. More notified, GI consulted.
--- NOTE | 2024-03-03 12:47 | CON.GI ---
Consultation
-
Date/Time Consultation Requested: 03/03/24
Date/Time Consultation Performed: 03/03/24
Requesting Provider:
Performing Provider:
Reason for Consultation: epigastric pain,n/v
Medical History
Chief Complaint / HPI
Chief Complaint: epigastric pain,n/v
History of Present Illness:
This is a 63-year-old female with past medical history of type 1 diabetes diabetes, DKA, hypertension, hyperlipidemia, ADHD, depression who presented on 03/01 with symptoms of nausea vomiting and hyperglycemia which started on Monday. She says that
she has been on insulin pump and that she ran out of [employer]Joy G6 sensors about a month ago and has been checking her blood sugars manually and prior to coming into the hospital her blood sugars were 600. She had bolused herself insulin and by the
time she came to the ER was 190. She was noted to be in DKA after admission and treated for it and now off insulin pump. She does have a history of diabetic gastroparesis which was diagnosed about 10 years ago but she has been able to control it
with dietary changes. Since yesterday she is also been having epigastric pain and also had vomiting last night and today morning. She also has been having more reflux symptoms with burning. she did receive potassium pills yesterday and today for
hypokalemia. She also complains of mild odynophagia no dysphagia. She has never had an endoscopy or colonoscopy in the past. No hematemesis. Her bowel movements are normally regular. She states that about a year ago she had abdominal pain was
diagnosed with gallstones but then subsequently had passed it and did not require cholecystectomy.
Past Medical History
Past Medical History: Other (Diabetes Mellitus-Type I, diabetic Gastroparesis, Essential Hypertension, Hyperlipidemia, Depression, ADHD, DKA)
Past Surgical History: Other (C- section)
Social History
Tobacco: Non-Smoker
Alcohol: None
Drug: None
Family History
Family History: Reviewed & Not Pertinent
Allergies / Home Medications
Allergy/AdvReac Type Severity Reaction Status Date / Time
No Known Allergies Allergy Verified 03/01/24 15:13
�Medication �Instructions �Recorded
lisinopril 10 mg tablet 10 mg PO DAILY Blood Pressure 05/15/15
atorvastatin 40 mg tablet 40 mg PO QPM High Cholesterol 03/01/24
bupropion HCl 150 mg 24 hr tablet, 150 mg PO DAILY Mental 03/01/24
extended release Health/Anxiety
dextroamphetamine-amphetamine 10 10 mg PO DAILY PRN focus 03/01/24
mg tablet
dextroamphetamine-amphetamine ER 30 mg PO DAILY Mental 03/01/24
30 mg 24hr capsule,extend release Health/Anxiety
insulin aspart U-100 100 unit/mL 0 unit SC .VIA PUMP Diabetes 03/01/24
subcutaneous solution (Novolog
U-100 Insulin aspart)
Review of Systems
-
All other systems: A 12 pt ROS was Negative except as stated above in HPI
Vital Signs
Temp Pulse Resp BP Pulse Ox
97.4 F 77 15 96/54 96
03/03/24 07:26 03/03/24 12:00 03/03/24 12:00 03/03/24 10:00 03/03/24 12:00
Physical Exam
Exam
General: No Apparent Distress
HEENT: Normocephalic
Respiratory: Clear
Cardiac: S1/S2 and Regular Rhythm
GI: Soft, Non Distended, Normal Bowel Sounds and Tender (epigastric area)
Musculoskeletal: No Clubbing
Skin: Warm
Neuro: Awake, Alert and Oriented
Psych: Calm
Results
WBC 9.6 10^3/uL (4.8-10.8) 03/03/24 04:12
Hgb 10.5 g/dL (12.0-16.0) L 03/03/24 04:12
Hct 30.3 % (37.0-47.0) L 03/03/24 04:12
MCV 84.9 fL (81.0-99.0) 03/03/24 04:12
Plt Count 232 10^3/uL (130-400) D 03/03/24 04:12
Absolute Neuts (auto) 12.7 10^3/uL (1.4-6.5) H 03/01/24 16:09
PT 14.3 Sec (11.4-14.6) 03/02/24 04:11
INR 1.12 03/02/24 04:11
APTT 28.8 Sec (23.4-35.0) 03/02/24 04:11
Sodium Cancelled 03/03/24 20:00
Potassium Cancelled 03/03/24 20:00
Chloride Cancelled 03/03/24 20:00
Carbon Dioxide Cancelled 03/03/24 20:00
BUN Cancelled 03/03/24 20:00
Creatinine Cancelled 03/03/24 20:00
Calcium Cancelled 03/03/24 20:00
Total Bilirubin Cancelled 03/03/24 07:34
AST Cancelled 03/03/24 07:34
ALT Cancelled 03/03/24 07:34
Alkaline Phosphatase Cancelled 03/03/24 07:34
Lipase Cancelled 03/03/24 07:34
Diagnostic Image Results:
Prior GI Procedures:
EGD: none
Colonoscopy: none
Assessment / Plan
-
1. Nausea vomiting prior to admission was most likely related to hyperglycemia and also has known history of gastroparesis and symptoms likely worsened from poorly controlled blood sugars. Could also have been possibly viral gastroenteritis. She
also has been having epigastric pain with increased burning symptoms which could be related to reflux esophagitis especially worsened with recent vomiting episodes or could be related to possible pill esophagitis symptoms worsened after potassium
pills and or could be related to peptic ulcer disease. She has been started on Protonix and will also add Carafate. Will also get an abdominal ultrasound since she has a remote history of biliary colic. Her LFTs from today are normal and lipase
was also normal. if her symptoms do not improve then will need endoscopy but patient is very hesitant to have an endoscopy.
2. DKA was treated and has resolved and electrolytes are being repleted
3. she has never had any form of screening for colon cancer, I encouraged her to at least do the Cologuard she has the kit at home. She does not really want to schedule a colonoscopy.
4.Her hemoglobin decreased to 10.5 today and was 14 on admission but most likely is related to IV fluids and dilutional. Currently has no signs of bleeding no hematemesis or melena continue to monitor hemoglobin.
-
-
Thank you for consultation and allowing me to participate in the patient's care. Please call the contract consultant GI physician during the after hours with any questions or concerns.
[2024-03-03] MEDS: CARAFATE 1 GRAM PO ×2 (13:49→22:00)
[2024-03-03 15:17] LABS: Glucose - Point of Care 249 mg/dl (70-99)
[2024-03-03] MEDS: NOVOLOG FLEXPEN-LOW RESISTANCE 3 UNITS SC (15:32)
--- NOTE | 2024-03-03 16:45 | PTCARENOTE ---
Pt given Carafate, attempted to eat dinner, was only able to eat a couple of bites of dinner and c/o abdominal pain. Pain subsided after she stopped eating, pt stated she might attempt to eat a little more later. aware. Labs sent.
[2024-03-03 16:47] LABS: Blood Urea Nitrogen 5 mg/dl (7-17); Calcium 9.3 mg/dl (8.4-10.2); Carbon Dioxide 25 mmol/L (22-30); Chloride 99 mmol/L (98-107); Estimated Creatinine Clearance 90 ml/min; Glucose 223 mg/dl (70-99); Phosphorus 2.3 mg/dl (2.5-4.5); Potassium 3.8 mmol/L (3.5-5.1); Sodium 131 mmol/L (135-145); eGFR > 60.00
[2024-03-03] MEDS: LIPITOR 40 MG PO (17:41)
[2024-03-03] MEDS: LOVENOX SC (17:47)
[2024-03-03] MEDS: NEUTRA-PHOS POWDER PACKET 250 MG PO ×2 (17:47→21:59)
--- NOTE | 2024-03-03 19:45 | PTCARENOTE ---
Patient received from the ICU. AAOx3, VSS. Patient oriented to the room, call hopkins within reach.
[2024-03-03] MEDS: NSS (PRESERVATIVE FREE) 10 ML IV (19:51)
[2024-03-03] MEDS: PROTONIX IV 40 MG IV (19:51)
[2024-03-03 21:29] LABS: Glucose - Point of Care 375 mg/dl (70-99)
[2024-03-03] MEDS: NOVOLOG FLEXPEN 10 UNITS SC (21:59)
--- NOTE | 2024-03-03 22:29 | PTCARENOTE ---
Addendum entered by Tonya Rasheed, RIGOBERTO 03/04/24 00:09:
Blood sugar at 0006 was 164
Original Note:
Patient had blood glucose of 375 at 2127. AAOx3, asymptomatic. ROSS Guzman ordered coverage, see MAR. Will recheck blood glucose in 2 hours from administered medication per protocol.
[2024-03-04 00:07] LABS: Glucose - Point of Care 164 mg/dl (70-99)
[2024-03-04] MEDS: TYLENOL 1000 MG PO (06:16)
[2024-03-04] MEDS: CARAFATE 1 GRAM PO ×2 (06:17→14:43)
[2024-03-04] MEDS: ZOFRAN 4 MG IV (06:17)
[2024-03-04 07:31] LABS: Glucose - Point of Care 291 mg/dl (70-99)
[2024-03-04 07:50] VITALS: BP 179/90
[2024-03-04] MEDS: NSS (PRESERVATIVE FREE) 10 ML IV (08:10)
[2024-03-04] MEDS: LANTUS 0.280000000000000027 UNITS SC (08:10)
[2024-03-04] MEDS: PROTONIX IV 40 MG IV (08:11)
[2024-03-04] MEDS: WELLBUTRIN XL (24 hour extended release) 150 MG PO (08:12)
[2024-03-04] MEDS: ZESTRIL 10 MG PO (08:12)
--- NOTE | 2024-03-04 08:13 | PN.DE.MGMTRT ---
Insulin Management
- -
Patient is a 63 y/o female with a past medical history of diabetes mellitus type 1, diabetic ketoacidosis, hyperlipidemia, hypertension, depression, and attention deficit hyperactivity disorder who presents for hyperglycemia, nausea, and vomiting
due to DKA, A1C 11.3%, Cr 0.6, eGFR> 60.
Pt was managed on insulin infusion, GAP closed and was transitioned to SQ insulin. She sees Endo at [facility]- kevin Chavez, uses Medtronic T-slim insulin pump with NovoLog insulin and CGM- [employer] G7
Glucose has been elevated, FBG 291 via finger stick, pt states that she did not receive long acting insulin.
She has her insulin pump at bedside but battery . Insulin pump was placed on machine gun mechanic and was able to turn back on.
Pt was assisted with set up of her insulin pump. she received Lantus and aspart this morning, glucose was 1023 prelunch.
Pt was made NPO prior to lunch for test, she reports that her blood sugar may be dropping, Nurse obtained accuchek and was 96.
Instructed pt to resume insulin pump when her diet has been resumed after the US.
Current insulin pump settings :
Basal ICR ISF
12A- 4A 0.5 1:15 1:50
4A - 8A 0.7 1:15 1:50
8A - 10A 0.5 1:15 1:50
10A - 1P 0.7 1:15 1:50
1P - 12A 0.7 1:15 1:50
Insulin Duration 5 hrs. Target 110
24 hr total basal 15.6 units
Pt independent with boluses and managing her insulin pump. Will make no changes to current pump settings.
Diabetes History
- -
Type of Diabetes: 1
Pre-Admission Diabetes Regimen
03/03/24 03/03/24 03/03/24
04:00 07:34 12:00
Creatinine Cancelled Cancelled Cancelled
03/03/24 03/03/2403/03/24
16:00 16:29 20:00
Creatinine Cancelled 0.5 L Cancelled
Lab Results
Hemoglobin A1c 11.3 % (4.0-5.6) H 03/02/24 04:11
Insulin Pump Settings
IP Diabetes Regimen
03/03/24 03/03/24 03/03/24
04:00 07:34 08:04
Glucose Cancelled Cancelled
POC Glucose 207 H
03/03/24 03/03/24 03/03/24
08:58 10:03 11:02
Glucose
POC Glucose 203 H 142 H 132 H
03/03/24 03/03/24 03/03/24
12:00 15:05 16:00
Glucose Cancelled Cancelled
POC Glucose 249 H
03/03/24 03/03/24 03/03/24
16:29 20:00 21:27
Glucose 223 H Cancelled
POC Glucose 375 H
03/04/24 03/04/24
00:06 07:29
Glucose
POC Glucose 164 H 291 H
Meal type: Breakfast
Meal type: Dinner
Amount consumed: 100%
Patient Education
[2024-03-04] MEDS: NOVOLOG FLEXPEN-LOW RESISTANCE 3 UNITS SC (08:14)
[2024-03-04] MEDS: NOVOLOG FLEXPEN 8 UNITS SC (08:24)
--- NOTE | 2024-03-04 08:44 | W.PN.HOSP.TC ---
Today's Communication/Plan
-
cont current mgmt. D/C planning today
Assessment / Plan
Assessment / Plan
Gen-AAOx3, NAD
HEENT-NC, AT, anicteric, clear oral mm
Neck-supple
CV-reg, no M, +S1/S2
Lungs-clear B/L
Abd-soft, nondistended, no tenderness
Ext-no edema
Musculoskeletal-no cyanosis, clubbing
Skin-warm and dry
Neuro-grossly non-focal
Psych-calm, cooperative
A/P:
DM1 complicated by DKA -unknown trigger but perhaps acute gastroenteritis given symptoms. Improved. transition back to pump today.
prior to today:
Anion gap 5, bicarb 26 on bicarb drip. DKA resolved. Glucose 142 this morning, BMP at 8 AM pending.
Will transition off insulin drip, start Lantus 28 units in the morning. Overlap with drip over 2 hours. NovoLog with meals, low resistance correction scale.
Consult diabetes MODEL AND MOLD MAKER PLASTER to see tomorrow to transition back to pump.
Significant metabolic acidosis -due to DKA and GI losses. Resolved.
Nausea, epigastric discomfort - Improved. GI did US and unremarkable. On ppi and carafate and gi ok for d/c today.
unclear if side effect of potassium supplements versus gastritis versus peptic ulcer disease. Symptoms seem to have worsened after 40 meq oral potassium early this morning. If epigastric discomfort persists, will consult GI. Check lipase. Check
LFTs.
Hypophosphatemia -will replete.
Hyponatremia -likely due to hypovolemia due to DKA. Contributing from hyperglycemia as well.
Hypokalemia -getting repleted. Magnesium normal.
Hypercalcemia -resolved.
Essential hypertension -stable. Lisinopril resumed.
Hyperlipidemia -on atorvastatin.
Major depression
Diabetic gastroparesis
Full code
Anticipated Discharge: Today
Subjective/Interval History
-
Date of Service: March 04, 2024
patient denies n/v/abd pain
Objective Data
-
Labs:
Laboratory Results
03/04/24
08:20
WBC Pending
Hgb Pending
Hct Pending
Plt Count Pending
Sodium Pending
Potassium Pending
Chloride Pending
Carbon Dioxide Pending
BUN Pending
Creatinine Pending
Glucose Pending
Calcium Pending
Vital Signs:
Vital Signs
Temp Pulse Resp BP Pulse Ox
98 F 61 16 179/90 98
03/04/24 07:50 03/04/24 07:50 03/04/24 07:50 03/04/24 07:50 03/04/24 07:50
I&O
03/03/24 03/04/24 03/05/24
06:59 06:59 06:59
Intake Total 3739.5 / 3841.5 2143
Output Total 650 / 650
Balance 3089.5 / 3191.5 2143
Review of Systems
-
All other systems: Reviewed and negative
[2024-03-04 08:51] LABS: % Basophils 0.8 % (0-2); % Eosinophils 1.9 % (0-6); % Immature Granulocytes 0.2 % (0-0.5); % Lymphocytes 34.5 % (20.5-51.1); % Monocytes 10.8 % (1.7-9.3); % Neutrophils 51.8 % (42.2-75.2); Absolute Basophils 0.1 10^3/uL (0-0.2); Absolute Eosinophils 0.1 10^3/uL (0-0.7); Absolute Lymphocytes 2.1 10^3/uL (1.2-3.4); Absolute Monocytes 0.6 10^3/uL (0.1-0.6); Absolute Neutrophils 3.1 10^3/uL (1.4-6.5); Hematocrit 35.6 % (37.0-47.0); Hemoglobin 12.2 g/dL (12.0-16.0); Mean Corp Hgb Conc. 34.3 g/dL (33.0-37.0); Mean Corpuscular Hgb 29.1 pg (27.0-31.0); Mean Platelet Volume 9.8 fL (7.4-10.4); Nucleated Red Blood Cells % 0 %; Platelet Count 253 10^3/uL (130-400); Red Blood Cell Count 4.19 10^6/uL (4.20-5.40); Red Cell Dist. Width 13.2 % (11.5-14.5); White Blood Cell Count 5.9 10^3/uL (4.8-10.8)
--- NOTE | 2024-03-04 09:00 | W.PN.GI.CBS2 ---
Today's Communication / Plan
-
US today
PPI bid
Carafate
Assessment / Plan
-
1. Nausea vomiting prior to admission was most likely related to hyperglycemia and also has known history of gastroparesis and symptoms likely worsened from poorly controlled blood sugars. Could also have been possibly viral gastroenteritis. She
also has been having epigastric pain with increased burning symptoms which could be related to reflux esophagitis especially worsened with recent vomiting episodes or could be related to possible pill esophagitis symptoms worsened after potassium
pills and or could be related to peptic ulcer disease. Continue Protonix BID X 4 to 6 weeks and Carafate. will also get an abdominal ultrasound since she has a remote history of biliary colic. Her LFTs from are normal and lipase was also normal.
if her symptoms do not improve then will need endoscopy but if her symptoms improve okay to DC home if US neg.
2. DKA was treated and has resolved and electrolytes are being repleted
3. she has never had any form of screening for colon cancer, I encouraged her to at least do the Cologuard she has the kit at home. She does not really want to schedule a colonoscopy.
4.Her hemoglobin decreased to 10.5 03/03 but today 12.2 and was 14 on admission most likely related to IV fluids and dilutional. Currently has no signs of bleeding no hematemesis or melena continue to monitor hemoglobin.
Subjective
Subjective
Date of Service: March 04, 2024
Still with epigastric pain and burning but improved from yesterday. Was able to tolerate some diet with minimal odynophagia no dysphagia. No rectal bleeding or melena
Objective
Data Reviewed
Laboratory Data:
Laboratory Results
PT 14.3 Sec (11.4-14.6) 03/02/24 04:11
INR 1.12 03/02/24 04:11
APTT 28.8 Sec (23.4-35.0) 03/02/24 04:11
Phosphorus 2.3 mg/dl (2.5-4.5) L 03/03/24 16:29
Magnesium 1.8 mg/dl (1.6-2.3) 03/03/24 04:12
Total Bilirubin Cancelled 03/03/24 07:34
AST Cancelled 03/03/24 07:34
ALT Cancelled 03/03/24 07:34
Alkaline Phosphatase Cancelled 03/03/24 07:34
Lipase Cancelled 03/03/24 07:34
Vital Signs and I&O:
Vital Signs
Temp Pulse Resp BP Pulse Ox
98 F 61 16 179/90 98
03/04/24 07:50 03/04/24 07:50 03/04/24 07:50 03/04/24 07:50 03/04/24 07:50
I&O
03/03/24 03/04/24 03/05/24
06:59 06:59 06:59
Intake Total 3739.5 / 3841.5 2143
Output Total 650 / 650
Balance 3089.5 / 3191.5 2143
Physical Exam
Physical Exam
Cardiology: Normal Sinus Rhythm
Pulmonary: Clear
GI: Soft, Non Distended, Tender (Epigastric area) and Normal Bowel Sounds
[2024-03-04 12:08] LABS: Glucose - Point of Care 103 mg/dl (70-99)
[2024-03-04] MEDS: NOVOLOG FLEXPEN-LOW RESISTANCE SC (12:28)
[2024-03-04 13:10] LABS: Glucose - Point of Care 93 mg/dl (70-99)
[2024-03-04 13:25] LABS: Blood Urea Nitrogen 8 mg/dl (7-17); Calcium 9.9 mg/dl (8.4-10.2); Carbon Dioxide 28 mmol/L (22-30); Chloride 98 mmol/L (98-107); Estimated Creatinine Clearance 90 ml/min; Glucose 120 mg/dl (70-99); Potassium 3.7 mmol/L (3.5-5.1); Sodium 132 mmol/L (135-145); eGFR > 60.00
[2024-03-04 14:11] LABS: Glucose - Point of Care 50 mg/dl (70-99)
--- NOTE | 2024-03-04 14:16 | W.DCSUMMARY ---
Discharge Summary
Discharge Data
Date of Admission: 03/01/24
Date of Discharge: 03/04/24
-
Pending Results: No
Hospital Course
Patient 63 years old female is with diabetes mellitus type 1, hypertension, hyperlipidemia, ADHD, depression, diabetes gastroparesis presented to the hospital with nausea and vomiting and significant hyperglycemia found to be in DKA. Prior to her
presentation she had run out of her insulin pump and sensors. She was admitted to ICU and started on IV fluids and IV insulin drip. Patient went out of DKA and she was transferred out of ICU to medical floor. Patient did well present hospital stay
but did have some abdominal discomfort for which a GI placed on PPI and Carafate and also ordered an ultrasound of the abdomen that was unremarkable. GI cleared for discharge. She is feeling much better and she is back to her baseline. She is
able to eat and drink without any problems and no longer has nausea or abdominal pain. She is also able to use her insulin pump again. She is hemodynamically stable. She will be discharged in stable condition today.
Discharge duration: 35 minutes
Discharge Plan
-
Patient Disposition: Home (Routine Discharge)
Discharge Diagnosis/Procedures: Diabetes ketoacidosis. Acute gastroenteritis. Abdominal pain. Pseudohyponatremia. Hypokalemia. Depression.
Diet: Low Cholesterol
Activity: As tolerated
Driving Restrictions: As prior to admission
Blood Work: Please PCP to order CBC, CMP within 1 week.
Referrals:
Oscar Miles DO [Family Provider] - in less than 1 week
Fina Fabian MD [Active] - in two to four weeks
Prescriptions:
New
sucralfate 1 gram Tablet
1 g PO ACHS 30 Days Qty: 120 0RF
pantoprazole [Protonix] 40 mg tablet,delayed release (DR/EC)
40 mg PO BID Qty: 60 0RF
Continued
lisinopril 10 MG tablet
10 mg PO DAILY
atorvastatin 40 mg tablet
40 mg PO QPM
dextroamphetamine-amphetamine 10 mg tablet
10 mg PO DAILY PRN (Reason: focus)
Patient Comments:
03/01/2024: last filled 01/03/24, 30 tabs for 30 days from [id number]
insulin aspart U-100 [Novolog U-100 Insulin aspart] 100 unit/mL solution
0 unit SC .VIA PUMP
dextroamphetamine-amphetamine 30 mg capsule,extended release 24hr
30 mg PO DAILY
Patient Comments:
03/01/2024: last filled 01/03/24, 30 tabs for 30 days from [id number]
bupropion HCl 150 mg tablet extended release 24 hr
150 mg PO DAILY
Discharge Orders:
Discharge Patient (As Directed); Ordered 03/04/24
Ordered By: Alek Barillas
Discharge Date and Time
Discharge Date/Time: 03/04/24 15:48
Print Language: LATVIAN
[2024-03-04 14:29] LABS: Glucose - Point of Care 60 mg/dl (70-99)
[2024-03-04] MEDS: NEUTRA-PHOS POWDER PACKET PO (14:43)
[2024-03-04] MEDS: NOVOLOG FLEXPEN SC (14:43)
[2024-03-04 14:44] LABS: Glucose - Point of Care 85 mg/dl (70-99)
[2024-03-04] MEDS: NEUTRA-PHOS POWDER PACKET 250 MG PO (14:44)
--- NOTE | 2024-03-04 15:20 | CM ---
Ambulating on room air.
Pox RM 98%.
Pt said she was ready for dc.
She said her son will drive her home.
Offered VN she declined need.
PLAN Home no needs
[2024-03-04 15:40] VITALS: BP 144/79
--- NOTE | 2024-03-04 16:09 | CM ---
Alert awake oriented patient who lives with and 13yo daughter e in a 2 story home with 12 step to enter and 2 steps to bed room . She is independent in driving and all activities of daily living.Offered VN she declined. She uses an insulin
pump.
No SNF/VN hx
Pharmacy [facility]
PCP Dr Miles
PLAN Home no needs
== END 2024-03-04 15:48 | disposition home or self-care (01) | DRG 638 ==
LOC: 4 EAST ACU 19:11
PROVIDERS: Emergency Medicine; Nurse Practitioner Family; Physician Assistant Medical; ADMITTING PHYSICIAN Hospitalist; ATTENDING PHYSICIAN Hospitalist; CONSULT PHYSICIAN Internal Medicine Gastroenterology; EMERGENCY PHYSICIAN Emergency Medicine; FAMILY PHYSICIAN Family Medicine; OTHER PHYSICIAN Internal Medicine Pulmonary Disease
DX: E10.10 Type 1 diabetes mellitus with ketoacidosis without coma (principal); E87.1 Hypo-osmolality and hyponatremia; Z11.52 Encounter for screening for COVID-19; Z79.4 Long term (current) use of insulin; E10.43 Type 1 diabetes mellitus with diabetic autonomic (poly)neuropathy; E86.9 Volume depletion, unspecified; I10 Essential (primary) hypertension; F32.A Depression, unspecified; K31.84 Gastroparesis; F90.9 Attention-deficit hyperactivity disorder, unspecified type; E83.52 Hypercalcemia; E78.00 Pure hypercholesterolemia, unspecified; F32.9 Major depressive disorder, single episode, unspecified; E87.6 Hypokalemia; E83.39 Other disorders of phosphorus metabolism; K52.9 Noninfective gastroenteritis and colitis, unspecified
CPT/HCPCS: 71046; 76700; 80048; 80053; 81003; 82010; 82248; 82805; 82962; 83036; 83690; 83735; 84100; 85025; 85027; 85610; 85730; 87811; 93005; 96361; 96374; 96375; 99291